=== PATIENT | male | born 1940 | race Caucasian/White ===

== ENCOUNTER 2018-01-11 07:40 | Inpatient (IN) | payer MEDICARE, OTHER ==
[~2018-01-11 07:40] MED LIST: ROCURONIUM 50 MG INJ
[2018-01-11] MEDS ORDERED: LACTATED RINGER'S 1,000 ML IV* (09:30)
[2018-01-11] MEDS ORDERED: BUPIVACAINE 0.25%/EPI (SDV) 30 ML INJ (10:24)
[2018-01-11] MEDS ORDERED: CEFAZOLIN 1 GM INJ (10:29)
[2018-01-11] MEDS ORDERED: GLYCOPYRROLATE 0.4 MG INJ (10:29)
[2018-01-11] MEDS ORDERED: PROPOFOL 20 ML (10:29)
[2018-01-11] MEDS ORDERED: ROCURONIUM 50 MG INJ (10:29)
[2018-01-11] MEDS ORDERED: NEOSTIGMINE 3 MG/3 ML SYRINGE (10:29)
[2018-01-11] MEDS ORDERED: HYDROCODONE/APAP (5/325) TAB PO ×3 (10:30→15:30)
[2018-01-11] MEDS ORDERED: FENTAnyl 50 MCG/ML VIAL (10:30)
[2018-01-11] MEDS ORDERED: MIDAZOLAM 1 MG/ML 2 ML INJ (10:30)
[2018-01-11] MEDS ORDERED: DEXAMETHASONE 4 MG/ML 1 ML INJ (10:30)
[2018-01-11] MEDS ORDERED: PROCHLORPERAZINE 10 MG TAB PO ×2 (10:30→15:30)
[2018-01-11] MEDS ORDERED: ONDANSETRON 4 MG INJ IV ×2 (10:30→11:30)
[2018-01-11] MEDS ORDERED: ONDANSETRON 4 MG INJ (10:30)
[2018-01-11] MEDS ORDERED: ACETAMINOPHEN 325 MG TAB PO ×2 (10:30→15:30)
[2018-01-11] MEDS ORDERED: HYDROmorphONE 0.5 MG/0.5 ML SYG IV (10:30)
[2018-01-11] MEDS ORDERED: NALOXONE (0.4 MG/ML) INJ IV ×2 (10:30→15:30)
[2018-01-11] MEDS ORDERED: NACL 0.9% 3 ML SYG IV ×2 (10:30→15:30)
[2018-01-11] MEDS ORDERED: MIDAZOLAM 1 MG/ML 2 ML INJ IV (11:30)
[2018-01-11] MEDS ORDERED: OXYCODONE/ACETAMINOPHEN (5/325) TAB PO ×2 (11:30)
[2018-01-11] MEDS ORDERED: IPRATROPIUM (NEB) 0.5 MG/2.5 ML AMP HHN (11:30)
[2018-01-11] MEDS ORDERED: HYDROmorphONE 1 MG/5 ML IV SYRINGE IV ×3 (11:30)
[2018-01-11] MEDS ORDERED: TRIMETHOBENZAMIDE 100 MG/ML VIAL IM (11:30)
[2018-01-11] MEDS ORDERED: ALBUTEROL 0.083% (NEB) 2.5 MG/3 ML AMP HHN (11:30)
[2018-01-11] MEDS ORDERED: MEPERIDINE 25 MG INJ IV (11:30)
[2018-01-11] MEDS ORDERED: FENTAnyl 50 MCG/ML VIAL IV ×3 (11:30)
[2018-01-11] MEDS ORDERED: DIPHENHYDRAMINE 50 MG INJ IV (11:30)
[2018-01-11] MEDS ORDERED: EPHEDrine SULFATE 50 MG/5 ML SYG IV (11:30)
[2018-01-11] MEDS ORDERED: LABETALOL HCL 20MG INJ IV (11:30)
[2018-01-11] MEDS ORDERED: hydrALAzine 20 MG INJ IV (11:30)
[2018-01-11] MEDS: POLYMYXIN/BACITRACIN 1L IRRIG IRR (11:46)
[2018-01-11] MEDS: BUPIVACAINE 0.25%/EPI (SDV) 30 ML INJ INJ (11:46)
[2018-01-11] MEDS: POLYMYXIN/BACITRACIN 1L IRRIG (11:46)
[2018-01-11] MEDS: GELATIN SIZE 100 SPONGE (11:46)
[2018-01-11] MEDS: THROMBIN 5000 UNIT VIAL TOP (11:46)
[2018-01-11] MEDS: THROMBIN 5000 UNIT VIAL (12:42)
[2018-01-11] MEDS ORDERED: SUGAMMADEX SODIUM 200 MG/2 ML VIAL IV (14:56)
[2018-01-11] MEDS: CEFAZOLIN 2 GM/50 ML (PMX) 50 ML IVPB (16:16)
[2018-01-11] MEDS: HYDROmorphONE 0.2 MG/ML PCA IV (16:47)
[2018-01-11] MEDS ORDERED: CANDESARTAN CILEXETIL 32 MG PO (18:00)
[2018-01-11] MEDS: SOD CHLORIDE 0.9% 1,000 ML IV (18:40)
[2018-01-11] MEDS: CEFAZOLIN 1 GM/50 ML (PMX) 50 ML IVPB (18:45)
[2018-01-11] MEDS: TAMSULOSIN (SR) 0.4 MG CAP PO (21:16)
[2018-01-11] MEDS: ATORVASTATIN 80 MG TAB PO (21:17)
[2018-01-12] MEDS: CEFAZOLIN 1 GM/50 ML (PMX) 50 ML IVPB ×3 (00:08→13:23)
[2018-01-12 05:17] LABS: ADD MAN DIFF? NO
[2018-01-12 05:27] LABS: BASOPHILS % 0.1 % (0.0-2.0); HEMATOCRIT 35.6 % (42.0-52.0); HEMOGLOBIN 12.3 g/dl (14.0-18.0); IMMATURE GRANS #M 0.05 10^3/ul; IMMATURE GRANS % (M) 0.4 %; LYMPHOCYTES # 0.7 10^3/ul (0.8-2.9); MEAN CORPUSCULAR HEMOGLOBIN 33.2 pg (29.0-33.0); MEAN CORPUSCULAR HGB CONC 34.6 g/dl (32.0-37.0); MONOCYTE # 0.8 10^3/ul (0.3-0.9); MONOCYTES % 5.9 % (0.0-11.0); NEUTROPHIL # 12.3 10^3/ul (1.6-7.5); NEUTROPHILS % 88.6 % (39.0-77.0); PLATELET COUNT 175 10^3/UL (140-415); RED BLOOD COUNT 3.71 10^6/ul (4.70-6.10); RED CELL DISTRIBUTION WIDTH 13.2 % (11.5-14.5)
[2018-01-12 05:27] LABS: WHITE BLOOD COUNT 13.8 10^3/ul (4.8-10.8)
[2018-01-12] MEDS: PANTOPRAZOLE (EC) 40 MG TAB PO (05:54)
[2018-01-12] MEDS: SOD CHLORIDE 0.9% 1,000 ML IV ×2 (05:57→08:45)
[2018-01-12 06:07] LABS: ANION GAP 13 (8-16); BLOOD UREA NITROGEN 13 mg/dl (7-20); CALCIUM 8.9 mg/dl (8.4-10.2); CARBON DIOXIDE 25 mmol/L (21-31); CHLORIDE 109 mmol/L (97-110); CREATININE 0.83 mg/dl (0.61-1.24); GLUCOSE 138 mg/dl (70-220); POTASSIUM 4.6 mmol/L (3.5-5.1); SODIUM 142 mmol/L (135-144)
[2018-01-12 06:17] LABS: MAGNESIUM 1.5 mg/dl (1.7-2.5)
[2018-01-12 06:17] LABS: PHOSPHORUS 4.3 mg/dl (2.5-4.9)
[2018-01-12] MEDS: HYDROmorphONE 0.2 MG/ML PCA IV (06:25)
[2018-01-12] MEDS ORDERED: NON-FORMULARY/PATIENT OWN MED (Umeclidinium Brm-Vilanterol Tr (Anoro Ellipta) 1 EACH) INHALATION (09:00)
[2018-01-12] MEDS: SERTRALINE 100 MG TAB PO (09:13)
[2018-01-12] MEDS: FLUTICASONE 0.05% 16 GM NAS SPRAY NASAL (09:13)
[2018-01-12] MEDS: DOCUSATE SODIUM 100 MG CAP PO ×2 (09:13→20:45)
[2018-01-12] MEDS: ONDANSETRON 4 MG INJ IV (09:21)
[2018-01-12] MEDS ORDERED: [UNRECOGNIZED DRUG - REMARK] XX (10:30)
[2018-01-12] MEDS ORDERED: HYDROmorphONE 0.5 MG/0.5 ML SYG IV (13:00)
[2018-01-12] MEDS: ANORO ELLIPTA INH (13:20)
[2018-01-12] MEDS: CANDESARTAN 32 MG PO (13:21)
[2018-01-12 15:20] LABS: ADD UMIC YES; UR ASCORBIC ACID NEGATIVE (NEGATIVE); UR BACTERIA FEW /HPF (NONE SEEN); UR BILIRUBIN (Dip) NEGATIVE (NEGATIVE); UR BLOOD (Dip) 3+ mg/dL (NEGATIVE); UR CLARITY SLIGHTLY CLOUDY (CLEAR); UR COLOR YELLOW (YELLOW); UR GLUCOSE (Dip) NEGATIVE (NEGATIVE); UR KETONES (Dip) NEGATIVE (NEGATIVE); UR LEUKOCYTE ESTERASE (Dip) TRACE Leu/ul (NEGATIVE); UR NITRITE (Dip) NEGATIVE (NEGATIVE); UR RBC > 182 /HPF (0-5); UR SPECIFIC GRAVITY (Dip) 1.015 (1.003-1.030); UR TOTAL PROTEIN (Dip) 1+ mg/dl (NEGATIVE); UR UROBILINOGEN (Dip) NEGATIVE (NEGATIVE); UR WBC 32 /HPF (0-5)
[2018-01-12] MEDS: TAMSULOSIN (SR) 0.4 MG CAP PO ×2 (17:20→20:45)
[2018-01-12] MEDS: MAGNESIUM SULFATE 3 GM in DEXTROSE 5% 100 ML IVPB (17:26)
[2018-01-12] MEDS: NIACIN (ER) 500 MG TAB PO (19:21)
[2018-01-12] MEDS: ATORVASTATIN 80 MG TAB PO (20:45)
[2018-01-12] MEDS: HYDROCODONE/APAP (5/325) TAB PO (22:18)
[2018-01-13] MEDS: SOD CHLORIDE 0.9% 1,000 ML IV (02:03)
[2018-01-13] MEDS: PANTOPRAZOLE (EC) 40 MG TAB PO (05:48)
[2018-01-13 05:50] LABS: ADD MAN DIFF? NO
[2018-01-13 06:00] LABS: WHITE BLOOD COUNT 11.5 10^3/ul (4.8-10.8)
[2018-01-13 06:00] LABS: BASOPHILS % 0.2 % (0.0-2.0); EOSINOPHILS % 0.1 % (0.0-7.0); HEMATOCRIT 34.2 % (42.0-52.0); HEMOGLOBIN 11.9 g/dl (14.0-18.0); IMMATURE GRANS #M 0.05 10^3/ul; IMMATURE GRANS % (M) 0.4 %; LYMPHOCYTES # 1.2 10^3/ul (0.8-2.9); LYMPHOCYTES % 10.5 % (15.0-51.0); MEAN CORPUSCULAR HEMOGLOBIN 33.1 pg (29.0-33.0); MEAN CORPUSCULAR HGB CONC 34.8 g/dl (32.0-37.0); MEAN PLATELET VOLUME 10.5 fl (7.4-10.4); MONOCYTE # 0.8 10^3/ul (0.3-0.9); MONOCYTES % 7.1 % (0.0-11.0); NEUTROPHIL # 9.4 10^3/ul (1.6-7.5); NEUTROPHILS % 81.7 % (39.0-77.0); PLATELET COUNT 146 10^3/UL (140-415); RED CELL DISTRIBUTION WIDTH 13.2 % (11.5-14.5)
[2018-01-13 06:15] LABS: ANION GAP 11 (8-16); BLOOD UREA NITROGEN 15 mg/dl (7-20); CALCIUM 8.4 mg/dl (8.4-10.2); CARBON DIOXIDE 25 mmol/L (21-31); CHLORIDE 108 mmol/L (97-110); CREATININE 0.87 mg/dl (0.61-1.24); GLUCOSE 120 mg/dl (70-220); MAGNESIUM 2.1 mg/dl (1.7-2.5); PHOSPHORUS 2.8 mg/dl (2.5-4.9); POTASSIUM 3.6 mmol/L (3.5-5.1); SODIUM 140 mmol/L (135-144)
[2018-01-13] MEDS: HYDROCODONE/APAP (5/325) TAB PO ×2 (07:12→20:28)
[2018-01-13] MEDS: TAMSULOSIN (SR) 0.4 MG CAP PO ×3 (08:18→20:28)
[2018-01-13] MEDS: BETHANECHOL 10 MG TAB PO (08:19)
[2018-01-13] MEDS: DOCUSATE SODIUM 100 MG CAP PO ×2 (09:40→20:28)
[2018-01-13] MEDS: BETHANECHOL 25 MG TAB PO ×3 (09:40→20:28)
[2018-01-13] MEDS: CANDESARTAN 32 MG PO (09:40)
[2018-01-13] MEDS: SERTRALINE 100 MG TAB PO (09:40)
[2018-01-13] MEDS: POTASSIUM CHLORIDE (SR) 10 MEQ TAB PO (09:40)
[2018-01-13] MEDS: ANORO ELLIPTA INH (09:41)
[2018-01-13] MEDS: FLUTICASONE 0.05% 16 GM NAS SPRAY NASAL (09:41)
[2018-01-13] MEDS: NIACIN (ER) 500 MG TAB PO (18:20)
[2018-01-13] MEDS: ATORVASTATIN 80 MG TAB PO (20:28)
[2018-01-14 05:07] LABS: WHITE BLOOD COUNT 10.7 10^3/ul (4.8-10.8)
[2018-01-14 05:07] LABS: ADD MAN DIFF? NO; BASOPHILS % 0.2 % (0.0-2.0); EOSINOPHILS # 0.1 10^3/ul (0.0-0.5); EOSINOPHILS % 0.6 % (0.0-7.0); HEMATOCRIT 33.1 % (42.0-52.0); HEMOGLOBIN 11.5 g/dl (14.0-18.0); LYMPHOCYTES # 1.3 10^3/ul (0.8-2.9); LYMPHOCYTES % 12.3 % (15.0-51.0); MEAN CORPUSCULAR HEMOGLOBIN 33.3 pg (29.0-33.0); MEAN CORPUSCULAR HGB CONC 34.7 g/dl (32.0-37.0); MEAN CORPUSCULAR VOLUME 95.9 fl (82.0-101.0); MEAN PLATELET VOLUME 10.2 fl (7.4-10.4); MONOCYTE # 0.9 10^3/ul (0.3-0.9); MONOCYTES % 8.4 % (0.0-11.0); NEUTROPHIL # 8.4 10^3/ul (1.6-7.5); NEUTROPHILS % 78.1 % (39.0-77.0); PLATELET COUNT 143 10^3/UL (140-415); RED BLOOD COUNT 3.45 10^6/ul (4.70-6.10)
[2018-01-14 05:27] LABS: ANION GAP 10 (8-16); BLOOD UREA NITROGEN 13 mg/dl (7-20); CALCIUM 8.6 mg/dl (8.4-10.2); CARBON DIOXIDE 25 mmol/L (21-31); CHLORIDE 108 mmol/L (97-110); CREATININE 0.79 mg/dl (0.61-1.24); GLUCOSE 107 mg/dl (70-220); POTASSIUM 3.7 mmol/L (3.5-5.1); SODIUM 139 mmol/L (135-144)
[2018-01-14] MEDS: PANTOPRAZOLE (EC) 40 MG TAB PO (05:31)
[2018-01-14] MEDS: HYDROCODONE/APAP (5/325) TAB PO ×2 (07:22→16:57)
[2018-01-14] MEDS: CANDESARTAN 32 MG PO (09:55)
[2018-01-14] MEDS: SERTRALINE 100 MG TAB PO (09:56)
[2018-01-14] MEDS: BETHANECHOL 25 MG TAB PO ×2 (09:56→13:55)
[2018-01-14] MEDS: TAMSULOSIN (SR) 0.4 MG CAP PO (09:56)
[2018-01-14] MEDS: DOCUSATE SODIUM 100 MG CAP PO (09:56)
[2018-01-14] MEDS: FLUTICASONE 0.05% 16 GM NAS SPRAY NASAL (09:56)
[2018-01-14] MEDS: ANORO ELLIPTA INH (09:57)
== END 2018-01-14 17:30 | disposition home or self-care (01) | DRG 517 ==
LOC: REC 07:40 → MS1 01-12 23:10
PROVIDERS: Orthopaedic Surgery
PROC: 01NB0ZZ Release Lumbar Nerve, Open Approach (ICD-10-PCS; principal; 2018-01-11 10:30)
DX: M48.062 Spinal stenosis, lumbar region with neurogenic claudication (principal); I10 Essential (primary) hypertension; J44.9 Chronic obstructive pulmonary disease, unspecified; I25.10 Atherosclerotic heart disease of native coronary artery without angina pectoris; M51.26 Other intervertebral disc displacement, lumbar region; E78.5 Hyperlipidemia, unspecified; F32.9 Major depressive disorder, single episode, unspecified; N40.0 Benign prostatic hyperplasia without lower urinary tract symptoms; N40.1 Benign prostatic hyperplasia with lower urinary tract symptoms; R33.8 Other retention of urine
CPT/HCPCS: 72114; 76856; 80048; 81001; 83735; 84100; 85025; 86850; 86900; 86901; 87086; 97116; 97161; 97530